=== PATIENT | female | born 1975 | race African-American/Black ===

== ENCOUNTER → 2018-04-02 | Outpatient (CLI) | payer OTHER ==
[~2018-04-02] VITALS: Ht 177.8 cm; Wt 93.9 kg
[2018-04-02] VITALS (11 sets, daily range): BP systolic 99–129; BP diastolic 55–69
[~2018-04-02] MED LIST: NIFEDIPINE ER30 M1 PO
[2018-04-02 08:30] LABS: HEMATOCRIT 39.8 % (37.0-47.0); HEMOGLOBIN 13.7 gm/dL (12.0-15.0); MCH 31.1 pg (26.0-34.0); MCHC 34.4 g/dL (28.0-37.0); MCV 90.2 fL (80.0-100.0); RBC 4.41 mil/uL (4.20-5.00); WBC 4.1 thou/uL (4.0-11.0)
[2018-04-02 08:42] LABS: APTT 30.9 Seconds (25.0-31.3); INR 1.1; PROTIME 10.8 Seconds (9.20-11.50)
[2018-04-02 08:54] LABS: ANION GAP 8 mmol/L (7-16); BUN 7 mg/dL (7-18); CHLORIDE 103 mmol/L (98-107); CO2 26 mmol/L (21-32); CREATININE 0.8 mg/dL (0.6-1.3); GLUCOSE 93 mg/dL (70-99); POTASSIUM 3.8 mmol/L (3.5-5.1); SODIUM 137 mmol/L (136-145)
[2018-04-02 08:59] LABS: ALBUMIN 3.6 g/dL (3.4-5.0); ALKALINE PHOSPHATASE 36 U/L (46-116); SGOT 19 U/L (15-37); SGPT 33 U/L (30-65); TOTAL BILIRUBIN 0.5 mg/dL (<0.1-1.0)
[2018-04-02 09:21] LABS: CHOLESTEROL 156 mg/dL (<200); HDL CHOLESTEROL 44 mg/dL (>40); LDL CHOLESTEROL 88 mg/dL (<100); SERUM ASSESSMENT Clear; TC:HDL 3.5 Ratio (Not establshd); TRIGLYCERIDE 124 mg/dL (<150); VLDL 25 mg/dL (<40)
--- NOTE | 2018-04-02 09:41 | EKG ---
[place] [address] ELECTROCARDIOGRAM REPORT Name: JEAN CARLOS LAURA Room: [facility]#: [id number] Admission: 04/02/18 Attend Phys: Nathen Kothari MD, F Discharge: Date of : 73 Report #: [id number] THIS REPORT FOR: //name// [facility] Test Date: 2018-04-02 Test Time: 08:26:13 Pat Name: AURELIANOMANUELJose L LAURA Department: Room: Gender: F Instrument Technician: : 1975 Requested By: Nathen Kothari Order Number: [id number] Abbi MD: Nathen Kothari Measurements Intervals Basile Rate: 58 P: 8 TX: 178 QRS: 32 QRSD: 92 T: 39 QT: 409 QTc: 402 Interpretive Statements Sinus rhythm No previous ECG available for comparison Electronically Signed On 04-02-2018 9:41:43 [employer] by Nathen Kothari [email or web address] <ELECTRONICALLY SIGNED> By: Nathen Kothari MD, [facility] 04/02/18 0941 0826 08 Nathen Kothari MD, FACC /EPI
--- NOTE | 2018-04-02 14:50 | CARD ---
[address] [address] CARDIAC CATH REPORT Name: JEAN CARLOS LAURA [facility]#: [id number] Admission: 04/02/18 Attend Phys: Nathen Kothari MD, F Discharge: Date of : 73 Report #: [id number] THIS REPORT FOR: //name// APPROVED REPORT Study performed: 04/02/2018 07:55:00 Patient Details Patient Status: Out-Patient Room #: Event Personnel Composition Floor Layer Dr. Kothari, Consulting Services Associate Veronica Reed RN, Monitor RT CaryR, Scrub Brian Manuel Procedures Performed diagnostic cath Indication Valvular heart disease Previous Procedures/Diagnoses Previous Valve Surgery Admission/Lab Medications/Medications given during procedure Heparin Unfract. Procedure Narrative The patient was brought electively to the Cardiac Catheterization Laboratory and was prepped and draped in a sterile manner. The right wrist was infiltrated with 1% Lidocaine subcutaneous anesthesia. A 6Fr Slender sheath was inserted into the right radial artery. Coronary angiography was performed using coronary diagnostic catheters. The right coronary system was accessed and visualized with a Diagnostic 6Fr JR4 catheter. The left coronary system was accessed and visualized with a Diagnostic 6Fr JL4 catheter. The left ventricle was accessed and visualized with a Diagnostic 6Fr angled pigtail catheter. Left ventricular/Aortic Valve gradient assessed via catheter pullback. Left ventriculogram was performed in WEST projection. An aortogram of the [place] [address] CARDIAC CATH REPORT Name: JERAMY LAURAJose L CHAPO Room: [facility]#: [id number] Admission: 04/02/18 Attend Phys: Nathen Kothari MD, F Discharge: Date of : 73 Report #: [id number] Closure device was deployed with a 6 Fr vascband. The patient tolerated the procedure well and there were no complications associated with the procedure. There was no hematoma. Intraoperative Conscious Sedation Sedation start time: 953 Case end Time: 1047 Fentanyl 50.0 mcg Versed 8.0 mg Fluoro Time: 3.3 minutes Dose: DAP 00731 cGycm2 20.9 mGy Contrast Type and Amount: Omnipaque 300/ 45 ml Coronary Angiography The patient's coronary anatomy is right dominant. [place] Artery Percent Stenosis Left Main: 0 % Prox LAD: 0 % Mid/Distal LAD: 0 % Circumflex: 0 % RCA: 0 % Ramus: 0 % Moderately severe (3+) aortic insufficiency noted on aortic root injection. Left Ventriculography The left ventricle is normal in size with normal contractility. The left ventricular ejection fraction is estimated to be 55-60%. Left ventricular wall motion abnormalities are not present. There is no mitral insufficiency. Hemodynamics The left ventricular end diastolic pressure is 15 mmHg. Pullback from the left ventricle to the aorta revealed a 20 mm gradient across the aortic valve. Conclusion 1. normal coronary arteries 2. LVEF 55-60% 3. moderately severe aortic insufficiency and mild aortic stenosis Recommendations 1. start nifedipine xl 30 mg qd [facility] [address] [place] [address] CARDIAC CATH REPORT Name: JEAN CARLOS LAURA Room: [facility].#: [id number] Admission: 04/02/18 Attend Phys: Nathen Kothari MD, F Discharge: Date of : 73 Report #: [id number] 2. call if symptoms develop 3. repeat echo in 3 months <ELECTRONICALLY SIGNED> By: Nathen Kothari MD, FACC 04/02/18 1450 1450 1450Dajesus Kothari MD, FACC /INF
== END | disposition home or self-care (01) ==
LOC: M.CL 07:15
PROVIDERS: Internal Medicine Cardiovascular Disease
DX: I35.2 Nonrheumatic aortic (valve) stenosis with insufficiency (principal); Z98.890 Other specified postprocedural states; Z79.899 Other long term (current) drug therapy; Z79.01 Long term (current) use of anticoagulants

== ENCOUNTER → 2018-08-13 | Outpatient (CLI) | payer OTHER ==
[2018-08-13] VITALS (11 sets, daily range): BP systolic 00–127; BP diastolic 44–66
--- NOTE | 2018-08-13 14:50 | TEE ---
[place] [address] TRANSESOPHAGEAL ECHOCARDIOGRAM Name: JEAN CARLOS LAURA Room: [facility]#: [id number] Admission: 08/13/18 Attend Phys: Donis Williamson, Discharge: Date of : 73 Date of Service: 08/13/18 1450 Report #: [id number] THIS REPORT FOR: //name// APPROVED REPORT Study performed: 08/13/2018 12:00:04 EXAM: Comprehensive 2D, Doppler, and color-flow Echocardiogram Patient Location: Out-Patient Status: routine BSA: 2.10 HR: 65 bpm BP: 115/74 mmHg Rhythm: NSR Other Information Study Quality: Good Indications Aortic Valve Disease History of Aortic valve repair, Pre- aortic valve replacement Echo Enhancing Agent Indication: Rule out Shunt Agent(s) / Amount(s) Used: Agitated Saline 10 cc Procedure After obtaining informed consent, patient underwent transesophageal echo in the [employer]. Type of Sedation : Conscious Sedation Sedation was administered by Fallon Laughlin RN. Sedation start time: 1215 Case end Time: 1228 Sedation was achieved intravenously with: Versed (5) Fentanyl (100) Transesophageal probe was inserted and advanced into esophagus without difficulty by Donis Williamson MD, FACC. Echo enhancement indication: R/O Septal defect. Echo enhancement agent administered: Agitated Saline The REYNOLD was performed without complications. Throughout the procedure, the blood pressure, pulse oximetry, cardiac rhythm, and rate were monitored. The patient tolerated the procedure without adverse effects. Recovery from conscious sedation was uneventful and vital signs were stable. [address] [address] TRANSESOPHAGEAL ECHOCARDIOGRAM Name: JEAN CARLOS LAURA Room: [facility]#: [id number] Admission: 08/13/18 Attend Phys: Donis Williamson, Discharge: Date of : 73 Date of Service: 08/13/18 1450 Report #: [id number] Left Ventricle The left ventricle is normal size. There is normal LV segmental wall motion. There is normal left ventricular wall thickness. Left ventricular systolic function is normal. LVEF is 65%. Right Ventricle The right ventricle is normal size. The right ventricular systolic function is normal. Atria The left atrium size is normal. No thrombus is visualized in the left atrium or appendage. Interatrial septum is intact without evidence of ASD or PFO. The right atrium size is normal. Aortic Valve Aortic valve is thickened but has adequate excursion. Severe aortic regurgitation. There is no aortic valvular stenosis. No significant subaortic membrane seen. Mitral Valve The mitral valve is normal in structure. Mild mitral regurgitation. No evidence of mitral valve stenosis. Tricuspid Valve The tricuspid valve is normal in structure. Mild tricuspid regurgitation. Pulmonic Valve The pulmonary valve is normal in structure. There is no pulmonic valvular regurgitation. Great Vessels The aortic root is normal in size. Pericardium There is no pericardial effusion. <Conclusion> The left ventricle is normal size. There is normal left ventricular wall thickness. Left ventricular systolic function is normal. LVEF is 65%. Interatrial septum is intact without evidence of ASD or PFO. Aortic valve is thickened but has adequate excursion. [place] [address] TRANSESOPHAGEAL ECHOCARDIOGRAM Name: JEAN CARLOS LAURA Room: [facility]#: [id number] Admission: 08/13/18 Attend Phys: Donis Williamson, Discharge: Date of : 73 Date of Service: 08/13/181449 Report #: [id number] There is no aortic valvular stenosis. No significant subaortic membrane seen. Mild mitral regurgitation. Mild tricuspid regurgitation. <ELECTRONICALLY SIGNED> By: Donis Williamson MD, FACC 08/13/181449 49 49 Donsi Williamson MD, FACC /INF
== END | disposition home or self-care (01) ==
LOC: M.CL 10:26
DX: I08.3 Combined rheumatic disorders of mitral, aortic and tricuspid valves (principal); Z98.890 Other specified postprocedural states